=== PATIENT | female | born 1985 | race Caucasian/White ===

== ENCOUNTER 2016-06-27 23:24 | Emergency (ER) | payer OTHER ==
[2016-06-28] MEDS ORDERED: SODIUM CHLORIDE 0.9% 1,000 ML IV ONE (00:08)
[2016-06-28 00:31] LABS: Basophils % (A) 0 %; CH 34.5; CHCM 37.6; Eosinophils # (A) 0.4 k/uL (0-0.7); Eosinophils % (A) 5 %; HCT 29.2 % (34.0-46.0); HDW 3.06; HGB 10.2 gm/dL (11.4-16.0); Hyperchromasia Slight; Luc # (Auto) 0.11; Luc % (Auto) 2; Lymphocytes # (A) 1.2 k/uL (1.0-4.8); Lymphocytes % (A) 17 %; MCH 32.2 pg (25.0-35.0); MCV 92.2 fL (80.0-100.0); Mean Platelet Volume 7.5; Monocytes # (A) 0.3 k/uL (0-1.0); Monocytes % (A) 4 %; Neutrophils % (A) 72 %; RBC 3.17 m/uL (3.80-5.40); WBC (Perox) 6.97
[2016-06-28 01:14] VITALS: RESP 16
--- NOTE | 2016-06-28 01:53 | US ---
EXAM: US After First Trimester CLINICAL HISTORY: Reason: Pain/bleeding TECHNIQUE: Real-time transabdominal and endovaginal obstetrical ultrasound of the maternal pelvis and a second or third trimester with image documentation. COMPARISON: 04/07/16. FINDINGS: Single live uterine measuring 16 weeks and 4 days, consistent with estimated gestational age of 16 weeks and 2 days by LMP. PLACENTA: Anterior with possible posterior succenturiate lobe PREVIA: No Previa ELIJAH: 10.6 cm CERVICAL LENGTH 3.9 cm BIOMETRY PRESENTATION: Breech LIE: Longitudinal BPD: 3.4 cm corresponding to 16weeks / 5 days HC: 12.9 cm corresponding to 16weeks / 4 days AC: 10.8 cm corresponding to 16weeks / 5 days FL: 2.0 cm corresponding to 16weeks / 0 days ESTIMATED WEIGHT IN GRAMS: 155.7 ESTIMATED WEIGHT IN LBS/OZS: 0 lbs. 5 oz. WEIGHT PERCENTAGE BASED ON ESTABLISHED DATES: 50.6 HC/AC: 1.19 FL/AC: 18.43 HEART RATE: 143pm ADDITIONAL FINDINGS: Small anechoic area the placenta measuring 2.2 x 0.7 x 1.4 cm. IMPRESSION: 1. Single live uterine measuring 16 weeks and 4 days, size consistent with dates. 2. Small anechoic area the placenta measuring 2.2 x 0.7 x 1.4 cm, possible placental saldana or other etiology. Recommend attention on followup.
--- NOTE | 2016-06-28 01:55 | ED ---
Female Urogenital HPI - General Chief complaint: Vaginal Bleeding Stated complaint: Bleeding/Cramping 17 wks Time Seen by Provider: 06/27/16 23:43 Source: patient Mode of arrival: ambulatory Limitations: no limitations - History of Present Illness Initial comments: This patient's a 31-year-old woman who presents to be evaluated for some vaginal bleeding. The patient states that the symptoms started tonight probably around an hour ago after she had intercourse. The patient's bleeding she states is less than a period. There is no associated pain. She relates that she had a similar episode 3-4 weeks ago. She was seen by her singeing torch operator who is out of [place]. She states that she has blood type B negative, and that following the last episode of vaginal bleeding she did have a rhogam shot. She is not having fever or chills. She has not had any nausea or vomiting , change in urination or bowel movements, leg pain or swelling MD Complaint: vaginal bleeding -: hour(s) Consistency: constant Improves with: none Worsens with: none Patient : Yes Number of weeks : 17 - Related Data Home Medications Medication Instructions Recorded Confirmed Multivit-Min/Fe Fum/FA/Vit K 1 cap PO DAILY 06/27/16 06/27/16 [Women's Multivatimin] Allergies Allergy/AdvReac Type Severity Reaction Status Date / Time Penicillins Allergy Unknown Verified 06/27/16 23:54 Childhood Review of Systems ROS Statement: Those systems with pertinent positive or pertinent negative responses have been documented in the HPI. ROS Other: All systems not noted in ROS Statement are negative. Constitutional: Denies: fever, chills Respiratory: Denies: cough, dyspnea Cardiovascular: Denies: chest pain, palpitations, edema Gastrointestinal: Denies: abdominal pain, vomiting, diarrhea, constipation Genitourinary: Denies: dysuria, hematuria Musculoskeletal: Denies: back pain Skin: Denies: rash Neurological: Denies: headache, weakness, numbness Past Medical History Additional Past Medical History / Comment(s): scoliosis History of Any Multi-Drug Resistant Organisms: None Reported Past Surgical History: Back Surgery Past Psychological History: No Psychological Hx Reported Smoking Status: Never smoker Past Alcohol Use History: None Reported Past Drug Use History: None Reported General Exam Limitations: no limitations General appearance: alert, in no apparent distress Head exam: Present: atraumatic, normocephalic Eye exam: Present: normal appearance. Absent: scleral icterus, conjunctival injection ENT exam: Present: normal oropharynx Neck exam: Present: normal inspection Respiratory exam: Present: normal lung sounds bilaterally. Absent: respiratory distress, wheezes, rales, rhonchi, stridor Cardiovascular Exam: Present: regular rate, normal rhythm, normal heart sounds. Absent: systolic murmur, diastolic murmur, rubs, gallop GI/Abdominal exam: Present: soft. Absent: distended, tenderness, guarding, rebound, mass, bruit, pulsatile mass External exam: Present: normal external exam. Absent: erythema, swelling, lesions, lacerations Speculum exam: Present: normal speculum exam, vaginal bleeding. Absent: cervical discharge, foreign body, tissue By manual exam: Present: normal by manual exam, uterine enlargement (The uterus feels approximately 16-20 weeks). Absent: cervical motion tenderness, adnexal tenderness, adnexal mass, uterine tenderness Extremities exam: Present: normal inspection, normal capillary refill. Absent: pedal edema, calf tenderness Back exam: Present: normal inspection. Absent: CVA tenderness (R), CVA tenderness (L) Skin exam: Present: warm, dry, intact, normal color. Absent: rash Course Vital Signs 06/27/16 06/28/16 06/28/16 23:37 01:13 02:08 Temperature 97.8 F 98 F Pulse Rate 78 74 68 Respiratory 18 16 16 Rate Blood Pressure 92/50 101/52 95/52 O2 Sat by Pulse 99 97 98 Oximetry Medical Decision Making - Medical Decision Making Patient's a 31-year-old woman with a recurrent episode of vaginal bleeding following intercourse. She had a similar episode approximately 3-4 weeks ago and received program at that time. The ultrasound here today shows what appears to be a normal IUP at about 16 weeks 2 days. Discussed the results with the patient. She will practice pelvic rest. She'll have a day of bedrest and fluids. She'll follow-up with her singeing torch operator area if there is any difficulty I have given follow-up with the on-call singeing torch operator. If there is any difficulty she can return here. The patient's symptoms did resolve in the emergency department and she was sleeping comfortably. Return parameters discussed. - Lab Data Result diagrams: 06/28/16 00:20 Lab Results 06/28/16 06/28/16 Range/Units 00:20 00:20 WBC 7.0 (3.8-10.6) k/uL RBC 3.17 L (3.80-5.40) m/uL Hgb 10.2 L (11.4-16.0) gm/dL Hct 29.2 L (34.0-46.0) % MCV 92.2 (80.0-100.0) fL MCH 32.2 (25.0-35.0) pg MCHC 35.0 (31.0-37.0) g/dL RDW 14.0 (11.5-15.5) % Plt Count 192 (150-450) k/uL Neutrophils % 72 % Lymphocytes % 17 % Monocytes % 4 % Eosinophils % 5 % Basophils % 0 % Neutrophils # 5.0 (1.3-7.7) k/uL Lymphocytes # 1.2 (1.0-4.8) k/uL Monocytes # 0.3 (0-1.0) k/uL Eosinophils # 0.4 (0-0.7) k/uL Basophils # 0.0 (0-0.2) k/uL Hyperchromasia Slight HCG, Quant 12493.7 mIU/mL Disposition Clinical Impression: Threatened Disposition: HOME SELF-CARE Condition: Good Instructions: Threatened Miscarriage (ED) Referrals: Yeimy Laurent DO [Primary Care Provider] - 1-2 days Avila Nino DO [Doctor of Osteopathic Medicine] - 1-2 days
[2016-06-28 02:09] VITALS: BP 95/52; PULSE 68; TEMP 98
== END 2016-06-28 02:08 | disposition home or self-care (01) ==
LOC: EC 23:24
DX: O20.0 Threatened abortion (principal); Z88.0 Allergy status to penicillin
CPT/HCPCS: 36415; 76805; 84702; 85025; 96360; 99284

== ENCOUNTER 2016-10-20 17:07 | Emergency (ER) | payer OTHER ==
[2016-10-20] MEDS ORDERED: SODIUM CHLORIDE 0.9% 1,000 ML IV STA (17:55)
--- NOTE | 2016-10-20 18:19 | ED ---
General Adult HPI - General Chief complaint: Dizziness Stated complaint: ORLY and light headed Time Seen by Provider: 10/20/16 17:36 Source: patient, RN notes reviewed, old records reviewed Mode of arrival: wheelchair Limitations: no limitations - History of Present Illness Initial comments: This is a 31-year-old female ER today for evaluation. Patient is safe reevaluation of dizziness. Lightheadedness. Mild shortness of breath. Patient is 33 weeks floor. Patient denies any chest pain. No fevers no cough or congestion. Birthday green party had dinner when sat down, and he still and then felt near syncopal. No prior syncopal episodes prior pregnancies. No travel history. Again denying any pain at this time. Patient's that her symptoms are gradually improving since the eventp - Related Data Home Medications Medication Instructions Recorded Confirmed No Known Home Medications [No 10/20/16 10/20/16 Known Home Medications] Allergies Allergy/AdvReac Type Severity Reaction Status Date / Time Penicillins Allergy Unknown Verified 10/20/16 18:02 Childhood Review of Systems ROS Statement: Those systems with pertinent positive or pertinent negative responses have been documented in the HPI. ROS Other: All systems not noted in ROS Statement are negative. Past Medical History Past Medical History: Hearing Disorder / Deafness Additional Past Medical History / Comment(s): scoliosis History of Any Multi-Drug Resistant Organisms: None Reported Past Surgical History: Back Surgery Past Psychological History: No Psychological Hx Reported Smoking Status: Never smoker Past Alcohol Use History: None Reported Past Drug Use History: None Reported General Exam Limitations: no limitations General appearance: alert, in no apparent distress Head exam: Present: atraumatic, normocephalic, normal inspection Eye exam: Present: normal appearance, PERRL, EOMI. Absent: scleral icterus, conjunctival injection, periorbital swelling ENT exam: Present: normal exam, mucous membranes moist Neck exam: Present: normal inspection. Absent: tenderness, meningismus, lymphadenopathy Respiratory exam: Present: normal lung sounds bilaterally. Absent: respiratory distress, wheezes, rales, rhonchi, stridor Cardiovascular Exam: Present: regular rate, normal rhythm, normal heart sounds. Absent: systolic murmur, diastolic murmur, rubs, gallop, clicks GI/Abdominal exam: Present: soft, normal bowel sounds. Absent: distended, tenderness, guarding, rebound, rigid Extremities exam: Present: normal inspection, full ROM, normal capillary refill. Absent: tenderness, pedal edema, joint swelling, calf tenderness Back exam: Present: normal inspection Neurological exam: Present: alert, oriented X3, CN II-XII intact Psychiatric exam: Present: normal affect, normal mood Skin exam: Present: warm, dry, intact, normal color. Absent: rash Course Vital Signs 10/20/16 10/20/16 10/20/16 17:09 18:24 18:37 Temperature 98.7 F 97.7 F Pulse Rate 95 99 Respiratory 20 18 Rate Blood Pressure 115/61 94/50 O2 Sat by Pulse 98 98 Oximetry 10/20/16 19:05 Temperature Pulse Rate 87 Respiratory 18 Rate Blood Pressure 96/53 O2 Sat by Pulse 98 Oximetry EKG Findings - EKG Comments: EKG Findings:: EKG shows normal sinus rhythm rate of 90, MS 112, QRS 88, QTC 445 Medical Decision Making - Medical Decision Making 31 female began with dizziness to syncope, symptoms improved with IV hydration, will culture patient's urine patient can follow-up result, patient is due Rhogam will follow up OB to get Rhogam shot, - Lab Data Result diagrams: 10/20/16 18:15 10/20/16 18:15 Lab Results 10/20/16 10/20/16 10/20/16 Range/Units 18:15 18:15 18:15 WBC 7.3 (3.8-10.6) k/uL RBC 2.80 L (3.80-5.40) m/uL Hgb 8.8 L (11.4-16.0) gm/dL Hct 24.9 L (34.0-46.0) % MCV 89.0 (80.0-100.0) fL MCH 31.6 (25.0-35.0) pg MCHC 35.5 (31.0-37.0) g/dL RDW 13.8 (11.5-15.5) % Plt Count 242 (150-450) k/uL Neutrophils % 77 % Lymphocytes % 13 % Monocytes % 6 % Eosinophils % 3 % Basophils % 0 % Neutrophils # 5.6 (1.3-7.7) k/uL Lymphocytes # 0.9 L (1.0-4.8) k/uL Monocytes # 0.4 (0-1.0) k/uL Eosinophils # 0.2 (0-0.7) k/uL Basophils # 0.0 (0-0.2) k/uL Sodium 136 L (137-145) mmol/L Potassium 3.6 (3.5-5.1) mmol/L Chloride 105 (98-107) mmol/L Carbon Dioxide 21 L (22-30) mmol/L Anion Gap 10 mmol/L BUN 9 (7-17) mg/dL Creatinine 0.50 L (0.52-1.04) mg/dL Est GFR (MDRD) Af Amer >60 (>60 ml/min/1.73 sqM) Est GFR (MDRD) Non-Af >60 (>60 ml/min/1.73 sqM) Glucose 98 (74-99) mg/dL Calcium 8.7 (8.4-10.2) mg/dL Phosphorus 3.9 (2.5-4.5) mg/dL Magnesium 1.9 (1.6-2.3) mg/dL Total Bilirubin 0.4 (0.2-1.3) mg/dL AST 20 (14-36) U/L ALT 27 (9-52) U/L Alkaline Phosphatase 99 (38-126) U/L Total Protein 6.6 (6.3-8.2) g/dL Albumin 3.4 L (3.5-5.0) g/dL Urine Color Yellow Urine Appearance Cloudy H (Clear) Urine pH 6.0 (5.0-8.0) Ur Specific [place] 1.020 (1.001-1.035) Urine Protein 2+ H (Negative) Urine Glucose (UA) Trace H (Negative) Urine Ketones Negative (Negative) Urine Blood Trace H (Negative) Urine Nitrite Negative (Negative) Urine Bilirubin Negative (Negative) Urine Urobilinogen 4.0 (<2.0) mg/dL Ur Leukocyte Esterase Large H (Negative) Urine RBC 14 H (0-5) /hpf Urine WBC 17 H (0-5) /hpf Ur Squamous Epith Cells 24 H (0-4) /hpf Urine Bacteria Rare H (None) /hpf Urine Mucus Many H (None) /hpf - Radiology Data Radiology results: report reviewed (Ultrasound positive IUP), image reviewed Disposition Clinical Impression: Dehydration, Anxiety, Dizziness, Anemia affecting Disposition: HOME SELF-CARE Condition: Good Instructions: Dizziness (ED) Referrals: Yeimy Laurent DO [Primary Care Provider] - 1-2 days
[2016-10-20 18:26] LABS: Basophils % (A) 0 %; CH 32.3; CHCM 36.5; Eosinophils # (A) 0.2 k/uL (0-0.7); Eosinophils % (A) 3 %; HCT 24.9 % (34.0-46.0); HDW 3.31; HGB 8.8 gm/dL (11.4-16.0); Luc # (Auto) 0.14; Luc % (Auto) 2; Lymphocytes # (A) 0.9 k/uL (1.0-4.8); Lymphocytes % (A) 13 %; MCH 31.6 pg (25.0-35.0); MCHC 35.5 g/dL (31.0-37.0); Mean Platelet Volume 6.5; Monocytes # (A) 0.4 k/uL (0-1.0); Monocytes % (A) 6 %; Neutrophils # (A) 5.6 k/uL (1.3-7.7); Neutrophils % (A) 77 %; RDW 13.8 % (11.5-15.5); WBC 7.3 k/uL (3.8-10.6); WBC (Perox) 7.34
[2016-10-20 18:27] VITALS: RESP 18
[2016-10-20 18:35] LABS: ALT 27 U/L (9-52); AST 20 U/L (14-36); Alkaline Phosphatase 99 U/L (38-126); Anion Gap 10 mmol/L; Blood Urea Nitrogen 9 mg/dL (7-17); Calcium 8.7 mg/dL (8.4-10.2); Carbon Dioxide 21 mmol/L (22-30); Chloride 105 mmol/L (98-107); Glucose 98 mg/dL (74-99); Magnesium 1.9 mg/dL (1.6-2.3); Non-African American GFR(MDRD) >60 (>60 ml/min/1.73 sqM); Phosphorous 3.9 mg/dL (2.5-4.5); Potassium 3.6 mmol/L (3.5-5.1); Sodium 136 mmol/L (137-145); Total Bilirubin 0.4 mg/dL (0.2-1.3); Total Protein 6.6 g/dL (6.3-8.2)
[2016-10-20 18:39] LABS: Appearance,Urine Cloudy (Clear); Bacteria,Urine Rare /hpf; Bilirubin,Urine Negative (Negative); Glucose,Urine (UA) Trace (Negative); Ketones,Urine Negative (Negative); Leukocyte Esterase,Urine Large (Negative); Mucus,Urine Many /hpf; Nitrite,Urine Negative (Negative); Particle Count 23568; Protein,Urine 2+ (Negative); RBC,Urine 14 /hpf (0-5); Squamous Epithelial Cell,Urine 24 /hpf (0-4); UA Billing (MACRO vs. MICRO) MICRO; WBC,Urine 17 /hpf (0-5)
--- NOTE | 2016-10-20 19:54 | US ---
EXAMINATION TYPE: US OB >= 14 wk fetus DATE OF EXAM: 10/20/2016 COMPARISON: 06/28/2016 CLINICAL HISTORY: Pain TECHNIQUE: Transabdominal (TA) GESTATIONAL AGE / DATING Physician Established: (33 weeks/1 days) EDC: 12/07/16 Dates by LMP: unknown Dates by First Scan: not available Dates by Current Scan: ( 32 weeks/5 days) EDC: 12/10/16 SURVEY IUP: Single PLACENTA: Anterior PREVIA: No Previa ELIJAH: 16.3 cm CERVICAL LENGTH (transabdominal: norm > 3.0cm): 3.4 cm BIOMETRY PRESENTATION: Breech BPD: 8.2 cm 33 weeks / 1 days HC: 30.5 cm 34 weeks / 0 days AC: 29.7 cm 33 weeks / 4 days FL: 6.2 cm 32. weeks / 0 days ESTIMATED WEIGHT IN GRAMS: 2133 grams ESTIMATED WEIGHT IN LBS/OZS: 4 lbs. 11 oz. WEIGHT PERCENTAGE BASED ON ESTABLISHED DATES: 41% HC/AC: 1.0 FL/AC: 20.8 HEART RATE: 152 bpm RHYTHM: Normal Normal appearing IUP. IMPRESSION: There is satisfactory growth compared to 06/28/2016. I see no complicating process.
[2016-10-20] MEDS ORDERED: Rhogam IMMUNE GLOBULIN 1,500 UNIT/1 ML IM ONE (19:57)
[2016-10-20 21:02] VITALS: BP 97/51; PULSE 85; TEMP 98.4
== END 2016-10-20 21:03 | disposition home or self-care (01) ==
LOC: EC 17:07
DX: O99.283 Endocrine, nutritional and metabolic diseases complicating pregnancy, third trimester (principal); O99.013 Anemia complicating pregnancy, third trimester; O99.343 Other mental disorders complicating pregnancy, third trimester; O99.89 Other specified diseases and conditions complicating pregnancy, childbirth and the puerperium; E86.0 Dehydration; D64.9 Anemia, unspecified; F41.9 Anxiety disorder, unspecified; R42 Dizziness and giddiness; R06.02 Shortness of breath; Z3A.33 33 weeks gestation of pregnancy; Z88.0 Allergy status to penicillin
CPT/HCPCS: 36415; 93005; 86900; 86901; 80053; 83735; 84100; 85025; 86850; 81001; 87086; 76805; 99285; 96360; 96361 ×2; 96372; J2791